=== PATIENT | female | born 1950 | race Caucasian/White ===

== ENCOUNTER 2018-05-16 10:53 | Emergency (ER) | payer MEDICARE, MEDICAID ==
[~2018-05-16] VITALS: Wt 78.0 kg
[~2018-05-16 10:53] MED LIST: DM MEDS; HTN MEDS
[2018-05-16] MEDS ORDERED: ACETAMINOPHEN 325 MG TAB PO ONE (13:00)
[2018-05-16] MEDS ORDERED: traMADol 50 MG TAB PO ONE (13:00)
[2018-05-16] MEDS ORDERED: TRAM50TA2 PO (13:38)
--- NOTE | 2018-05-16 13:41 | ERD ---
ER Documentation Chief Complaint Chief Complaint R SHOULDER PAIN AFTER FALL LAST NIGHT HPI 67-year-old female presents with right shoulder and right wrist pain after falling off a chair yesterday. Denies chest pain, shortness breath, dizziness, loss of consciousness, head injury. Most of her pain is in the right wrist area at the base of the thumb. ROS All systems reviewed and are negative except as per history of present illness. Medications Home Meds Active Scripts Tramadol HCl (Tramadol HCl) 50 Mg Tablet, 50 MG PO Q4 PRN for PAIN, #20 TAB Prov:DUANE CHOE MD 05/16/18 Reported Medications [Htn Meds] No Conflict Check 04/27/12 [Dm Meds] No Conflict Check 04/27/12 Allergies Allergies: Uncoded Allergies: NKDA (Allergy, Unknown, 05/16/18) PMhx/Soc Medical and Surgical Hx: pt denies Surgical Hx History of Surgery: No Anesthesia Reaction: No Hx Neurological Disorder: No Hx Respiratory Disorders: No Hx Cardiac Disorders: Yes (HTN) Hx Psychiatric Problems: No Hx Miscellaneous Medical Probl: Yes (DM) Hx Alcohol Use: No Hx Substance Use: No Hx Tobacco Use: No Smoking Status: Never smoker FmHx Family History: No diabetes, No coronary disease, No other Physical Exam Vitals Vital Signs Date Temp Pulse Resp B/P (MAP) Pulse Ox O2 O2 Flow FiO2 Time Delivery Rate 05/16/18 74 16 134/78 99 Room Air 14:20 (96) 05/16/18 98.1 78 18 138/138 78 10:56 (138) Physical Exam Const: No acute distress Head: Atraumatic Eyes: Normal Conjunctiva ENT: Normal External Ears, Nose and Mouth. Neck: Full range of motion. No meningismus. Resp: Clear to auscultation bilaterally Cardio: Regular rate and rhythm, no murmurs Abd: Soft, non tender, non distended. Normal bowel sounds Skin: No petechiae or rashes Back: No midline or flank tenderness Ext: No cyanosis, or edema. Tenderness around the right shoulder capsule without deformities, restricted range of motion weakness. Tenderness of the right scaphoid with bruising. No restricted range of motion weakness. No lacerations, erythema or bleeding. Neur: Awake and alert Psych: Normal Mood and Affect Results 24 hrs Current Medications Medications Dose Sig/Devin Start Time Status Last (Trade) Ordered Route PRN Stop Time Admin Dose Reason Admin 650 mg ONCE ONCE 05/16/18 DC Acetaminophen PO 13:00 05/16/18 (Tylenol 13:01 Tab) Tramadol 50 mg ONCE ONCE 05/16/18 DC 05/16/18 HCl PO 13:00 05/16/18 12:45 (Ultram) 13:01 Procedures/MDM X-ray right shoulder 3V Interpreted by me: Bones: No fracture Joints: No dislocation Foreign body: None. Impression-right shoulder degenerative changes of the AC joint without identified fracture or dislocation. X-ray right wrist 3V Interpreted by me: Scaphoid: Normal Bones: Nondisplaced fracture of the distal scaphoid Joints: No dislocation Foreign body: None impression-nondisplaced fracture to the distal scaphoid. She presents after mechanical fall last night with signs of right shoulder sprain and right scaphoid fracture. She has no evidence of vascular compromise, infection, deficits. Patient is placed in a right wrist thumb spica splint was neurovascular intact after splint. She is also administered right arm sling and tramadol for pain. She will discharged home with tramadol, orthopedic evaluation instructions and primary care follow-up. She should return for new or worsening symptoms otherwise with orthopedist or primary doctor as directed. The patient was stable with no new complaints during the ER course. Clinically, there is no current evidence to suggest meningitis, sepsis, acute abdomen, pn eumonia, stroke, acute coronary syndrome, pulmonary embolism, aortic dissection or any other emergent condition appearing to require further evaluation or hospitalization. Patient counseled regarding my diagnostic impression and care plan. Prior to discharge all questions answered. Pt agrees with treatment plan and understands strict return precautions. Pt is instructed to follow up with primary care provider within 24-48 hours. Precautionary instructions provided including instructions to return to the ER if not improving or for any worsening or changing symptoms or concerns. Departure Diagnosis: Primary Impression: Scaphoid fracture of wrist Encounter type: initial encounter Scaphoid bone location: distal pole Fracture type: closed Fracture alignment: nondisplaced Laterality: right Qualified Codes: S62.014A - Nondisplaced fracture of distal pole of navicular [scaphoid] bone of right wrist, initial encounter for closed fracture Additional Impression: Shoulder injury Encounter type: initial encounter Laterality: right Qualified Codes: S49.91XA - Unspecified injury of right shoulder and upper arm, initial encounter Condition: Stable Patient Instructions: Navicular Fracture, Wrist (Confirmed) Referrals: BRYAN CHEW MD,IN VIVIANA ABREU Additional Instructions: Shoulder appears normal. There is a small nondisplaced fracture of the right scaphoid or wrist. See orthopedist for further evaluation and treatment. May need authorization from primary doctor for orthopedist visit. DUANE CHOE MD May 16, 2018 13:41
[2018-05-16 14:20] VITALS: BP 134/78; PULSE 74; RESP 16
== END 2018-05-16 14:20 | disposition home or self-care (01) ==
LOC: FTE 10:53
DX: S62.014A Nondisplaced fracture of distal pole of navicular [scaphoid] bone of right wrist, initial encounter for closed fracture (principal); E11.9 Type 2 diabetes mellitus without complications; I10 Essential (primary) hypertension; W07.XXXA Fall from chair, initial encounter; Y92.9 Unspecified place or not applicable